=== PATIENT | female | born 1980 | race Caucasian/White ===

== ENCOUNTER 2016-11-05 14:01 | Emergency (ER) | payer BC, OTHER ==
[~2016-11-05] VITALS: Ht 167.6 cm; Wt 79.7 kg
[~2016-11-05 14:01] MED LIST: CYNI1000 INJ; EPP3/2 IM; IMT50 PO; LEVO175T3 PO; ONDA8TAB12 PO; OXYC1TAB3 PO
[2016-11-05 14:16] VITALS: Ht 167.6 cm; Wt 79.7 kg
[2016-11-05] MEDS ORDERED: LEVO100C2 PO ×2 (14:37)
[2016-11-05] MEDS ORDERED: PLQ200 PO (14:37)
[2016-11-05] MEDS ORDERED: SODIUM CHLORIDE 0.9% 1000ML 1,000 ML IV STA (14:39)
[2016-11-05] MEDS ORDERED: OPTIRAY 320 IV PRN (15:00)
[2016-11-05 15:09] VITALS: O2SAT 99
[2016-11-05 15:18] LABS: BASO % 0.2 %; BASO ABS # 0.02 K/uL (0-0.2); COMPLETE YES; EOS % 3.4 %; IG% 0.3 %; LYMPH % 21.5 %; LYMPH ABS # 2.44 K/uL (1.2-3.4); MEAN CORPUSCULAR HEMOGLOBIN 28.9 pg (25-34); MEAN CORPUSCULAR HGB CONC 33.3 g/dl (32-36); MEAN PLATELET VOLUME 11.7 fL (7.4-10.4); MONO % 5.2 %; NEUT % 69.4 %; PLATELET COUNT 279 K/uL (130-400); RED BLOOD COUNT 4.94 M/uL (4.2-5.4); WHITE BLOOD COUNT 11.35 K/uL (4.8-10.8)
[2016-11-05 15:27] LABS: URINE APPEARANCE CLEAR (CLEAR); URINE BILIRUBIN NEG (NEG); URINE COLOR YELLOW; URINE NITRITE NEG (NEG); URINE PH 6.5 (4.5-7.5); UROBILINOGEN NEG (NEG)
[2016-11-05 15:31] LABS: MANUAL MICROSCOPIC REQUIRED? NO; REVIEW REQ? NO
[2016-11-05 15:34] LABS: PREG INTERNAL NEGATIVE QC NEG CLEAR BACKGROUND; PREG INTERNAL POSITIVE QC POS CONTROL LINE
[2016-11-05 15:35] LABS: ALT/SGPT 19 U/L (12-78); AST/SGOT 11 U/L (15-37); BLOOD UREA NITROGEN 10 mg/dl (7-18); BUN/CREATININE RATIO 10.8 (10-20); CALCIUM 9.2 mg/dl (8.5-10.1); CARBON DIOXIDE 27 mmol/L (21-32); CHLORIDE 107 mmol/L (98-107); CREATININE 0.96 mg/dl (0.60-1.20); GLUCOSE 93 mg/dl (70-99); POTASSIUM 3.7 mmol/L (3.5-5.1); SODIUM 141 mmol/L (136-145)
[2016-11-05 15:37] LABS: ALKALINE PHOSPHATASE 118 U/L (45-117)
--- NOTE | 2016-11-05 17:36 | DIAGNOSTIC IMAGING REPORT ---
CT SCAN OF THE ABDOMEN AND PELVIS WITHOUT IV CONTRAST CLINICAL HISTORY: Upper abdominal pain. Hematochezia. COMPARISON STUDY: Abdominal CT dated 02/06/2012. TECHNIQUE: CT scan of the abdomen and pelvis is performed from the lung bases to the proximal femora. Images are reviewed in the axial, sagittal, and coronal planes. IV contrast was not administered for this examination due to a reported history of contrast allergy. Note that the examination is suboptimal without IV contrast. Oral contrast was utilized. Automated dose control exposure was utilized. A dose lowering technique was utilized adhering to the principles of ALARA. CT DOSE: 430.33 mGy.cm FINDINGS: Lung bases: The heart is normal in size and without pericardial effusion. The lung bases are clear. Liver: The unenhanced liver is normal in size, contour, and attenuation. There is no intrahepatic biliary ductal dilatation. Gallbladder: Unremarkable. Spleen: Normal in size and attenuation. Pancreas: Unremarkable. Adrenal glands: Unremarkable. Kidneys: The unenhanced kidneys are normal in size and without hydronephrosis. There are no renal calculi identified. There is no evidence of contour deforming renal mass lesion. There is a retroaortic left renal vein. Abdominal vasculature: The abdominal aorta is normal in course and caliber. Bowel: The small bowel and colon are normal in course and caliber. The appendix is not identified and postoperative change adjacent to the cecum suggests previous appendectomy. Peritoneum: There is no intraperitoneal free air or abdominal ascites. There is a small fat-containing umbilical hernia. Lymphadenopathy: None. Pelvic viscera: The bladder is normal as visualized. The uterus is surgically absent. No adnexal lesion is seen. There are small ovarian follicles. Skeletal structures: No lytic or blastic lesions are seen. IMPRESSION: There are no acute infectious or inflammatory findings in the abdomen or pelvis. Electronically signed by: Min Grajeda M.D. 11/05/2016 5:35 PM Dictated Date/Time: 11/05/2016 5:29 PM
[2016-11-05] MEDS ORDERED: PANTOprazole SOD 40 MG TAB PO STA (18:28)
[2016-11-05] MEDS ORDERED: OMEP40CA41 PO (18:37)
[2016-11-05 18:49] VITALS: BP 142/82; PULSE 90; TEMP 37.1; O2SAT 100
--- NOTE | 2016-11-05 19:20 | EMERGENCY ROOM VISIT NOTE ---
History Report prepared by Anjel: Bob Barclay Under the Supervision of: Dr. Otto Summers M.D. First contact with patient: 14:34 Chief Complaint: REFERRED BY DOCTOR Stated Complaint: REFERRED BY DOCTOR History of Present Illness The patient is a 35 year old female who presents to the Emergency Room with complaints of intermittent hematochezia that began two days ago. She is having some mild bloating abdominal pain that she rates a 2/10 in severity. At this time, she began to feel very hot and diaphoretic. She noticed something did not feel right in her bowels. She then had a loose bowel movement that had bright red blood in it. The blood occurred during the movement, not after. She has a history of IBS, so diarrhea and constipation is normal for her, but blood is not. The next day, this occurred two more times. She has not had a bowel movement today. She saw her PCP, but was referred here for faster results. This has never happened to her before. She is also mildly lightheaded as well. She denies any recent antibiotic use. She has a past medical history of migraines, a thyroid disorder, and possible Lupus. Pt denies LOC, headache, fevers, chills , visual changes, neck pain, chest pain, breathing difficulties, nausea, vomiting, back pain, melena, urinary symptoms, numbness, weakness, lymphadenopathy, rash, rectal pain, or other complaints. Source of History: patient Onset: two days ago Position: other (GI) Symptom Intensity: 3 episodes Quality: other (Hematochezia) Timing: intermittent Associated Symptoms: + diaphoresis, + abdominal pain (bloating), + diarrhea Review of Systems See HPI for pertinent positives and negatives. A total of ten systems were reviewed and were otherwise negative. Past Medical & Surgical Medical Problems: (1) Abdominal pain (2) Allergic reaction (3) Anemia (4) Angio-edema (5) Asthma, Unspecified (6) Bipol Aff, Mixed-Unspec (7) Dysmenorrhea (8) Dyspareunia (9) Esophageal Reflux (10) Headache (11) Hematometra (12) Hypothyroidism Nos (13) Menorrhagia (14) Migraine (15) Near syncope (16) Pelvic pain (17) Tubal occlusion Surgical Problems: (1) H/O tubal ligation (2) S/P endometrial ablation Family History Diabetes mellitus Heart disease Hypertension Social History Smoking Status: Never Smoker Smokeless Tobacco Use: No Alcohol Use: none Drug Use: none Marital Status: in relationship Housing Status: lives with family Occupation Status: employed Current/Historical Medications Scheduled Cyanocobalamin (Cyanocobalamin), 1,000 MCG INJ [id number] Epinephrine (Epipen), 0.3 MG IM UD Hydroxychloroquine Sulfate (Hydroxychloroquine Sulfat), 200 MG PO HS Levothyroxine Sodium (Tirosint), 100 MCG PO 5XWK Levothyroxine Sodium (Tirosint), 200 MCG PO 2XWK Omeprazole (Prilosec), 40 MG PO DAILY Scheduled PRN Ondansetron Hcl (Zofran), 8 MG PO UD PRN for Nausea Sumatriptan Succinate (Sumatriptan Succinate), 50 MG PO UD PRN for Headache Allergies Coded Allergies: Erythromycin (Verified Allergy, Severe, SEVERE HIVES, 11/05/16) Iodine (Verified Allergy, Severe, ANAPHYLACTIC REACTION TO CONTRAST MEDIA , 11/05/16) Doxycycline (Verified Allergy, Intermediate, HIVES, 11/05/16) Cheddar Cheese (Verified Allergy, Mild, hives, 11/05/16) Ibuprofen (Verified Allergy, Mild, 0, 11/05/16) poss angioedema Metronidazole (Verified Allergy, Mild, RASH, 11/05/16) NSAIDs (Verified Allergy, Mild, ANGIO EDEMA, 11/05/16) POLLEN (Verified Allergy, Mild, SEASONAL ALLERGIES, 11/05/16) GRASS, TREES, POLLEN Sulfamethoxazole (Verified Allergy, Mild, RASH, 11/05/16) Trimethoprim (Verified Allergy, Mild, RASH, 11/05/16) Levofloxacin (Verified Allergy, Unknown, HIVES, 11/05/16) Quinolones (Verified Allergy, Unknown, DEVELOPED FULL BODY HIVES WHEN SWITCHED TO PO, 11/05/16) Azithromycin (Unverified Adverse Reaction, Unknown, UNKNOWN, 11/05/16) Paroxetine (Verified Adverse Reaction, Unknown, INCREASED HEADACHE, ) Serotonin Reuptake Inhibitors (Verified Adverse Reaction, Unknown, INCREASED HEADACHES, 11/05/16) Sulfa Antibiotics (Unverified Adverse Reaction, Unknown, UNKNOWN, 11/05/16) Venlafaxine (Verified Adverse Reaction, Unknown, increased headache, ) Physical Exam Vital Signs Date Time Temp Pulse Resp B/P (MAP) Pulse Ox O2 Delivery O2 Flow Rate FiO2 11/05/16 18:49 37.1 90 18 142/82 100 11/05/16 18:38 90 18 142/82 100 Room Air 11/05/16 16:31 84 13 97 11/05/16 16:01 98 26 135/83 82 11/05/16 15:38 153/86 11/05/16 15:31 98 23 143/92 100 11/05/16 15:15 111 11/05/16 15:12 94 16 146/93 98 Room Air 11/05/16 15:11 146/93 11/05/16 15:09 99 Room Air 11/05/16 14:16 37.1 108 20 153/100 100 Room Air Physical Exam GENERAL: Awake, alert, well-appearing, in no distress HENT: Normocephalic, atraumatic. Oropharynx unremarkable. EYES: Normal conjunctiva. Sclera non-icteric. NECK: Supple. No nuchal rigidity. FROM. No JVD. RESPIRATORY: Clear to auscultation. CARDIAC: Regular rate, normal rhythm. Extremities warm and well perfused. Pulses equal. ABDOMEN: Soft, non-distended. Epigastric tenderness to palpation with guarding. No rebound. No masses. RECTAL: Deferred. MUSCULOSKELETAL: Chest examination reveals no tenderness. The back is symmetrical on inspection without obvious abnormality. There is no CVA tenderness to palpation. No joint edema. LOWER EXTREMITIES: Calves are equal size bilaterally and non-tender. No edema. No discoloration. NEURO: Normal sensorium. No sensory or motor deficits noted. SKIN: No rash or jaundice noted. Medical Decision & Procedures ER Provider Diagnostic Interpretation: Radiology results as stated below per my review and radiologist interpretation: CT SCAN OF THE ABDOMEN AND PELVIS WITHOUT IV CONTRAST CLINICAL HISTORY: Upper abdominal pain. Hematochezia. COMPARISON STUDY: Abdominal CT dated 02/06/2012. TECHNIQUE: CT scan of the abdomen and pelvis is performed from the lung bases to the proximal femora. Images are reviewed in the axial, sagittal, and coronal planes. IV contrast was not administered for this examination due to a reported history of contrast allergy. Note that the examination is suboptimal without IV contrast. Oral contrast was utilized. Automated dose control exposure was utilized. A dose lowering technique was utilized adhering to the principles of ALARA. CT DOSE: 430.33 mGy.cm FINDINGS: Lung bases: The heart is normal in size and without pericardial effusion. The lung bases are clear. Liver: The unenhanced liver is normal in size, contour, and attenuation. There is no intrahepatic biliary ductal dilatation. Gallbladder: Unremarkable. Spleen: Normal in size and attenuation. Pancreas: Unremarkable. Adrenal glands: Unremarkable. Kidneys: The unenhanced kidneys are normal in size and without hydronephrosis. There are no renal calculi identified. There is no evidence of contour deforming renal mass lesion. There is a retroaortic left renal vein. Abdominal vasculature: The abdominal aorta is normal in course and caliber. Bowel: The small bowel and colon are normal in course and caliber. The appendix is not identified and postoperative change adjacent to the cecum suggests previous appendectomy. Peritoneum: There is no intraperitoneal free air or abdominal ascites. There is a small fat-containing umbilical hernia. Lymphadenopathy: None. Pelvic viscera: The bladder is normal as visualized. The uterus is surgically absent. No adnexal lesion is seen. There are small ovarian follicles. Skeletal structures: No lytic or blastic lesions are seen. IMPRESSION: There are no acute infectious or inflammatory findings in the abdomen or pelvis. Electronically signed by: Min Grajeda M.D. 11/05/2016 5:35 PM Dictated Date/Time: 11/05/2016 5:29 PM Laboratory Results 11/05/16 15:04 Red Blood Count 4.94, Mean Corpuscular Volume 87.0, Mean Corpuscular Hemoglobin 28.9, Mean Corpuscular Hemoglobin Concent 33.3, Mean Platelet Volume 11.7, Neutrophils (%) (Auto) 69.4, Lymphocytes (%) (Auto) 21.5, Monocytes (%) (Auto) 5.2, Eosinophils (%) (Auto) 3.4, Basophils (%) (Auto) 0.2, Neutrophils # (Auto) 7.88, Lymphocytes # (Auto) 2.44, Monocytes # (Auto) 0.59, Eosinophils # (Auto) 0.39, Basophils # (Auto) 0.02 11/05/16 15:04 Test 11/05/16 00:00 11/05/16 15:04 Urine Color YELLOW Urine Appearance CLEAR (CLEAR) Urine pH 6.5 (4.5-7.5) Urine Specific [place] 1.020 (1.000-1.030) Urine Protein NEG (NEG) Urine Glucose (UA) NEG (NEG) Urine Ketones NEG (NEG) Urine Occult Blood NEG (NEG) Urine Nitrite NEG (NEG) Urine Bilirubin NEG (NEG) Urine Urobilinogen NEG (NEG) Urine Leukocyte Esterase NEG (NEG) White Blood Count 11.35 K/uL (4.8-10.8) Red Blood Count 4.94 M/uL (4.2-5.4) Hemoglobin 14.3 g/dL (12.0-16.0) Hematocrit 43.0 % (37-47) Mean Corpuscular Volume 87.0 fL (80-100) Mean Corpuscular Hemoglobin 28.9 pg (25-34) Mean Corpuscular Hemoglobin Concent 33.3 g/dl (32-36) Platelet Count 279 K/uL (130-400) Mean Platelet Volume 11.7 fL (7.4-10.4) Neutrophils (%) (Auto) 69.4 % Lymphocytes (%) (Auto) 21.5 % Monocytes (%) (Auto) 5.2 % Eosinophils (%) (Auto) 3.4 % Basophils (%) (Auto) 0.2 % Neutrophils # (Auto) 7.88 K/uL (1.4-6.5) Lymphocytes # (Auto) 2.44 K/uL (1.2-3.4) Monocytes # (Auto) 0.59 K/uL (0.11-0.59) Eosinophils # (Auto) 0.39 K/uL (0-0.5) Basophils # (Auto) 0.02 K/uL (0-0.2) RDW Standard Deviation 42.8 fL (36.4-46.3) RDW Coefficient of Variation 13.3 % (11.5-14.5) Immature Granulocyte % (Auto) 0.3 % Immature Granulocyte # (Auto) 0.03 K/uL (0.00-0.02) Anion Gap 7.0 mmol/L (3-11) Est Creatinine Clear Calc Drug Dose 86.2 ml/min Estimated GFR () 88.2 Estimated GFR (Non- 76.1 BUN/Creatinine Ratio 10.8 (10-20) Calcium Level 9.2 mg/dl (8.5-10.1) Total Bilirubin 0.4 mg/dl (0.2-1) Direct Bilirubin < 0.1 mg/dl (0-0.2) Aspartate Amino Transf (AST/SGOT) 11 U/L (15-37) Alanine Aminotransferase (ALT/SGPT) 19 U/L (12-78) Alkaline Phosphatase 118 U/L (45-117) Total Protein 8.2 gm/dl (6.4-8.2) Albumin 4.1 gm/dl (3.4-5.0) Lipase 189 U/L (73-393) Human Chorionic Gonadotropin, Qual NEG (NEG) Laboratory results reviewed by me Medications Administered Medications (Trade) Dose Ordered Sig/Toy Route Start Time Stop Time Status Last Admin Dose Admin Sodium Chloride 1,000 ml @ 999 mls/hr Q1H1M STAT IV 11/05/16 14:39 11/05/16 15:39 DC 11/05/16 14:39 999 MLS/HR Pantoprazole Sodium (Protonix Tab) 40 mg NOW STAT PO 11/05/16 18:28 11/05/16 18:29 DC 11/05/16 18:28 40 MG ED Course 1434: The patient was evaluated in room A10. A complete history and physical exam was performed. 1439: Ordered Sodium Chloride 1000 ml @ 999 mls/hr IV 1616: The patient is doing well at this time. She is preparing for a CT scan. 1828: Ordered Protonix Tab 40 mg PO 1840: I reevaluated the patient. Discussed results and discharge instructions: She verbalized understanding and agreement. She will follow up with Dr. Kaur. The patient is ready for discharge. Medical Decision Triage Nursing notes reviewed. The patient's presentation and history were concerning for abdominal discomfort and bloody stool. Etiologies such as GI bleed, infectious diarrhea, appendicitis, diverticulitis, obstruction, inflammatory bowel disease, renal colic, PUD, biliary pathology, pancreatitis, mesenteric ischemia, aortic pathology, infections, genitourinary, UTI, perforated viscus, as well as others were entertained. The patient was evaluated. She was tender in the epigastrium. She was hydrated. She declined analgesia. Blood work was obtained. The patient has a mild leukocytosis. Chemistry panel is unremarkable. The patient was unable to provide a stool sample. The patient underwent CT imaging and this was negative for emergent pathology. She was given an oral dose of Protonix. As she is doing relatively well at this time I discussed conservative management with close outpatient follow-up. The patient has GI at [facility], Dr. Kaur. She was provided material for obtaining an outpatient stool specimen. She had Zofran at home. Conservative management was discussed. The patient will follow -up closely in the office. If she worsens in any way she will come back. I gave my usual and customary discussion regarding this issue. By the evaluation outlined above other emergent etiologies such as those listed in the differential, as well as others, were deemed relatively unlikely. The patient was educated about the findings as listed above. All questions were answered and the patient was pleased with the treatment. Return instructions were outlined and the patient was discharged in stable condition. The patient was referred to [facility] gastroenterology for follow-up for a recheck of the current condition. Medication Reconcilliation Current Medication List: was personally reviewed by me Blood Pressure Screening Patient's blood pressure: Elevated blood pressure Blood pressure disposition: Elevated BP felt to be situational Impression Primary Impression: Upper abdominal pain Additional Impression: Hematochezia Scribe Attestation The scribe's documentation has been prepared under my direction and personally reviewed by me in its entirety. I confirm that the note above accurately reflects all work, treatment, procedures, and medical decision making performed by me. Departure Information Dispostion Home / Self-Care Prescriptions Omeprazole (PRILOSEC) 40 Mg Cap 40 MG PO DAILY, #14 CAP Prov: Otto Summers MD 11/05/16 Referrals Ro Hernandez D.O. (PCP) Forms HOME CARE DOCUMENTATION FORM, IMPORTANT VISIT INFORMATION, WORK / SCHOOL INSTRUCTIONS Patient Instructions [facility] Additional Instructions Prilosec 40 mg daily until directed otherwise by GI. Acetaminophen(Tylenol) may be used for fever or pain. Use 1000mg every six hours as needed. Avoid using more than 4000mg in a 24 hour period. Continue your Zofran. Rest and drink plenty of fluids as tolerated. Slow sips of water or sports drinks are recommended instead of large amounts all at once. Continue current medications. Once your stomach is settled start with a clear liquid diet (jello, soup broth, etc.) and then advance as tolerated. You should avoid full, heavy meals for about 24 hrs from the time your symptoms resolved. Return to the ER immediately for worsening or persistent abdominal pain, vomiting, fevers, chest pains, difficulty breathing, black or bloody stools, worsening of your condition, or as needed. Follow up with your GI office tomorrow for a recheck of your current condition. Problem Qualifiers
== END 2016-11-05 18:46 | disposition home or self-care (01) ==
LOC: C.EDB 14:03 → C.EDA 18:46
DX: R10.10 Upper abdominal pain, unspecified (principal); N85.7 Hematometra; D64.9 Anemia, unspecified; J45.909 Unspecified asthma, uncomplicated; N94.6 Dysmenorrhea, unspecified; N94.10 Unspecified dyspareunia; K21.9 Gastro-esophageal reflux disease without esophagitis; E03.9 Hypothyroidism, unspecified; Z83.3 Family history of diabetes mellitus; Z82.49 Family history of ischemic heart disease and other diseases of the circulatory system